=== PATIENT | male | born 1940 | race Caucasian/White ===

== ENCOUNTER 2020-06-18 10:22 | Emergency (ER) | payer MEDICARE ==
[~2020-06-18] VITALS: Ht 177.8 cm; Wt 82.7 kg
[~2020-06-18 10:22] MED LIST: APIX5TAB PO; Areds; EZET1TAB65 PO; HYDROCHLOROTH12.5 MG PO; LOSA1TAB22 PO; METO25TA91 PO; MULT-249 PO; OMEG1CAP23 PO; OMEG1CAP6 PO; [UNRECOGNIZED DRUG - CODE] PO
--- NOTE | 2020-06-18 10:40 | NUR ---
PATIENT ARRIVES WITH A BRUISED AND SWOLLEN GROIN AREA. HE HAD A AFIB ABLATION DONE VIA FEMORAL ROUTE THE . TODAY HIS GROIN IS SWOLLEN.
[2020-06-18 11:44] LABS: BASOPHILS # (AUTO) 0.05 x10^3/uL (0-0.1); BASOPHILS % (AUTO) 1 % (0-1); EOSINOPHILS # (AUTO) 0.16 x10^3/uL (0-0.4); EOSINOPHILS % (AUTO) 2 % (1-7); LYMPHOCYTES # (AUTO) 1.59 x10^3/uL (1-3.4); LYMPHOCYTES % (AUTO) 17 % (22-44); MD NO; MEAN CORPUSCULAR HEMOGLOBIN 28.9 pg (27.5-34.5); MEAN CORPUSCULAR HGB CONC 31.4 g/dL (33.2-36.2); MEAN PLATELET VOLUME 7.8 fL (7.4-10.4); MONOCYTES # (AUTO) 1.14 x10^3/uL (0.2-0.8); MONOCYTES % (AUTO) 12 % (2-9); NEUTROPHILS # (AUTO) 6.62 x10^3/uL (1.8-6.8); NEUTROPHILS % (AUTO) 69 % (42-75); PLATELET COUNT 253 x10^3/uL (130-400); RED BLOOD COUNT 4.43 x10^6/uL (4.38-5.82); RED CELL DISTRIBUTION WIDTH 16.6 % (9.4-14.8)
[2020-06-18 11:47] LABS: ALBUMIN 3.3 g/dL (3.4-5.0); ANION GAP 5 mmol/L (5-15); CALCIUM 8.8 mg/dL (8.5-10.1); CHLORIDE 108 mmol/L (98-107)
[2020-06-18 11:48] LABS: CREATININE 1.36 mg/dL (0.7-1.3)
--- NOTE | 2020-06-18 12:53 | NUR ---
patient resting quietly in bed.
[2020-06-18 13:05] VITALS: BP 132/78
== END 2020-06-18 13:45 | disposition home or self-care (01) ==
LOC: ED 12:25
DX: T81.89XA Other complications of procedures, not elsewhere classified, initial encounter (principal); R58 Hemorrhage, not elsewhere classified; I48.92 Unspecified atrial flutter
CPT/HCPCS: 36415; 80048; 82040; 85025; 99284

== ENCOUNTER → 2020-07-04 | Outpatient (CLI) | payer MEDICARE | END | disposition home or self-care (01) | LOC: CVU 11:45 | PROVIDERS: ATTEND Nurse Practitioner Family | DX: I08.8 Other rheumatic multiple valve diseases (principal); I11.0 Hypertensive heart disease with heart failure; I50.33 Acute on chronic diastolic (congestive) heart failure | CPT/HCPCS: 93306 ==